=== PATIENT | female | born 1935 | race Hispanic/Latino ===

== ENCOUNTER → 2021-06-19 | Outpatient (CLI) | payer MEDICARE ==
[~2021-06-19] MED LIST: GADOBENATE DIMEGLUMINE 1 ML IV ONE
[2021-06-19 08:40] LABS: CREATININE, SERUM 0.89 mg/dL (0.57-1.11)
== END ==
LOC: MRI 07:12
PROVIDERS: ATTEND Psychiatry & Neurology Neurology
DX: C54.1 Malignant neoplasm of endometrium (principal); R41.3 Other amnesia; E16.2 Hypoglycemia, unspecified; E44.1 Mild protein-calorie malnutrition; E53.8 Deficiency of other specified B group vitamins; E55.9 Vitamin D deficiency, unspecified; E78.49 Other hyperlipidemia
CPT/HCPCS: 36415; 70553; 82565; 84520